=== PATIENT | male | born 1990 | race Asian ===

== ENCOUNTER 2019-05-21 21:45 | Emergency (ER) | payer SELFPAY ==
[~2019-05-21] VITALS: Ht 190.5 cm; Wt 105.7 kg
[2019-05-21 21:49] VITALS: Ht 190.5 cm; Wt 105.7 kg
[2019-05-21 22:29] VITALS: BP 130/99
== END 2019-05-21 22:29 | disposition home or self-care (01) ==
LOC: ED 21:45
DX: S51.851A Open bite of right forearm, initial encounter (principal); W54.0XXA Bitten by dog, initial encounter; Y93.89 Activity, other specified; Y92.89 Other specified places as the place of occurrence of the external cause; Y99.8 Other external cause status
CPT/HCPCS: 90715